=== PATIENT | female | born 1970 | race Caucasian/White ===

== ENCOUNTER 2017-04-30 15:25 | Emergency (ER) ==
[2017-04-30 15:38] VITALS: BP 145/105; TEMP 98.9; BMI 39.6
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
[2017-04-30] MEDS ORDERED: ZOFRAN 4 MG/2 ML IVP STA (19:10)
[2017-04-30] MEDS ORDERED: SODIUM CHLORIDE 1,000 ML IV STA (19:10)
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
== END 2017-04-30 20:40 | disposition home or self-care (01) ==
LOC: ED 15:25
DX: S63.92XA Sprain of unspecified part of left wrist and hand, initial encounter (principal); M54.2 Cervicalgia; M54.9 Dorsalgia, unspecified; R51 Headache; V49.9XXA Car occupant (driver) (passenger) injured in unspecified traffic accident, initial encounter; F17.210 Nicotine dependence, cigarettes, uncomplicated
CPT/HCPCS: 36415; 80053; 84703; 85025; 96361; 96374; 99283